=== PATIENT | male | born 1990 | race Hispanic/Latino ===

== ENCOUNTER → 2024-06-06 11:59 | Outpatient (CLI) | payer OTHER, SELFPAY ==
[2024-06-06 13:27] LABS: Add Manual Diff / Slide Review NO; Basophils Absolute Auto 100 /uL (0-100); Eosinophils Absolute Auto 200 /uL (0-450); Eosinophils Percent Auto 3.3 % (2-4); Hematocrit 48.2 % (41-53); Hemoglobin 16.5 g/dL (13.5-17.5); Lymphocytes Absolute Auto 1900 /uL (1100-4500); Mean Corpuscular HGB Conc 34.3 % (30-36); Mean Corpuscular Hemoglobin 30.9 PG (26-34); Monocytes Absolute Auto 400 /uL (0-900); Monocytes Percent Auto 6.7 % (3-14); Neutrophils Absolute Auto 3600 /uL (1500-7000); Platelet Count 240 X10^3/uL (150-400); Red Blood Cell Count 5.35 X10^6/uL (4.5-5.9); Red Cell Distribution Width 13.2 % (11.6-14.8); White Blood Cell Count 6.3 X10^3/uL (4.5-11.0)
[2024-06-06 14:10] LABS: Alanine Aminotransferase 40 IU/L (<50); Albumin 4.7 g/dL (3.5-5.0); Albumin Globulin Ratio 1.7 (1.0-2.8); Alkaline Phosphatase 49 U/L (38-126); Aspartate Aminotransferase 32 IU/L (17-59); BUN Creatinine Ratio 13.8 (6-22); Blood Urea Nitrogen 15 mg/dL (9-20); Calcium 9.4 mg/dL (8.4-10.2); Carbon Dioxide 25 mmol/L (22-32); Chloride 106 mmol/L (98-107); Cholesterol 217 mg/dL (140-199); Estimated Glomerular Filt Rate > 60 mL/min (>60); Globulin 2.8 g/dL (1.7-4.1); Glucose 99 mg/dL (70-100); HDL Cholesterol 45 mg/dL (40-60); HEMOLYSIS < 15 (0-50); LDL Cholesterol Calculated 142 mg/dL (<100); Potassium 4.2 mmol/L (3.4-5.1); Sodium 139 mmol/L (137-145); Total Protein 7.5 g/dL (6.3-8.2); Triglycerides 149 mg/dL (35-150)
[2024-06-06 14:12] LABS: Hemoglobin A1C% w Est Avg Glu 5.2 % (4.0-6.0)
== END ==
LOC: LAB 12:01
PROVIDERS: PCP Family Medicine; Referring Provider Family Medicine; Visit Provider Family Medicine
DX: E66.9 Obesity, unspecified (principal); Z83.3 Family history of diabetes mellitus; R53.83 Other fatigue; G47.9 Sleep disorder, unspecified
CPT/HCPCS: 36415; 80053; 80061; 83036; 84443; 85025

== ENCOUNTER → 2024-11-12 08:37 | Outpatient (CLI) | payer OTHER, SELFPAY ==
[2024-11-12 09:21] LABS: Influenza A - CEPHEID Flu A POSITIVE (NEGATIVE); Influenza B - CEPHEID Flu B NEGATIVE (NEGATIVE); Respiratory Syncytial Virus Negative (Negative)
[2024-11-12 09:34] LABS: COVID-19 CEPHEID 4-PLEX PCR Negative (Negative)
== END ==
PROVIDERS: PCP Family Medicine; Referring Provider Physician Assistant Medical; Visit Provider Physician Assistant Medical
DX: R05.1 Acute cough (principal)
CPT/HCPCS: 0241U

== ENCOUNTER → 2025-04-12 16:11 | Outpatient (CLI) | payer OTHER, SELFPAY ==
--- NOTE | 2025-04-12 16:14 | DI.MRI.S_ITS ---
PROCEDURE: MR ELBOW LT W CON INDICATIONS: DISPLACED FRACTURE TECHNIQUE: Noncontrast coronal proton density fast spin echo and T2 fast spin echo with fat saturation, axial and sagittal T1 spin echo and T2 fast spin echo with fat saturation through the elbow. COMPARISON: [facility], CR, XR ELBOW 3+ VIEWS LEFT, 03/30/2025, 9:57. FINDINGS: Image quality: Excellent. Bone and cartilage: Findings related to presumed prior posterior elbow dislocation. Displaced fracture of the anterior radial head with surrounding osseous edema. Osseous defect is estimated at 1.9 x 0.7 x 0.7 cm. A similarly sized displaced and mildly edematous osteochondral fragment is seen anterior superior to the capitellum. Mildly displaced fracture of the coronoid process of the ulna with surrounding edema. Osseous edema is seen at the posterior aspect of the capitellum and the posterior aspect of the trochlea and medial epicondyle, compatible with osseous contusions. Moderate elbow effusion. No additional intra-articular loose bodies are seen. Lateral structures: Suspected high-grade partial versus complete tearing of the radial collateral ligament at the mid to distal portion and the lateral ulnar collateral ligament at the origin. The overlying common extensor tendon demonstrates mild tendinosis without definite tendon tearing. Mild edema within the proximal extensor musculature is compatible with low-grade strains. Medial structures: There is likely complete tearing of the ulnar collateral ligament at the proximal humeral attachment. Low-grade partial tearing of the common flexor tendon at the origin with superimposed muscle strains in the proximal musculature. The ulnar nerve appears thickened in the cubital tunnel with increased signal intensity. No extrinsic compression is seen. Anterior structures: Edema is seen within the distal brachialis muscle that may be reactive or related to low-grade strains. The focal fluid signal is seen along the medial aspect of the distal brachialis insertion that is suspicious for partial tearing. Distal biceps tendon remains intact. Trace bicipitoradial bursal fluid. The median and radial neurovascular bundles appear normal; no focal muscle atrophy to suggest nerve impingement. Posterior structures: The conjoint triceps tendon from the long and lateral heads appears intact. The medial head of the triceps tendon also appears normal, with direct muscle insertion onto the olecranon. Nonspecific soft tissue edema surrounding the elbow without significant focal olecranon bursal fluid. IMPRESSION: 1. Intra-articular fracture defect at the anterior radial head, with a displaced osteochondral fragment located anterior superior to the capitellum. 2. Small mildly displaced fracture at the coronoid process of the ulna. 3. Osseous contusions at the posterior capitellum and the posterior humeral trochlea and medial epicondyle. 4. Full-thickness tearing of the ulnar collateral ligament at the origin. Mild partial tearing of the adjacent common flexor tendon with edema and likely low-grade strains of the surrounding musculature. 5. At least partial tearing of the radial collateral ligament distally and the lateral ulnar collateral ligament proximally. Tendinosis of the common extensor tendon without definite tearing. Mild strains of the extensor musculature. 6. Suspected partial tearing of the medial portion of distal brachialis insertion onto the ulna with associated intramuscular edema and fluid. Distal biceps tendon is intact. 7. Moderate joint effusion. Approved by: Niranjan Carty M.D. on 04/13/2025 at 9:26
== END ==
LOC: MRI 16:13
PROVIDERS: PCP Family Medicine; Referring Provider Family Medicine; Visit Provider Orthopaedic Surgery
DX: S52.042A Displaced fracture of coronoid process of left ulna, initial encounter for closed fracture (principal); S52.122A Displaced fracture of head of left radius, initial encounter for closed fracture; S53.442A Ulnar collateral ligament sprain of left elbow, initial encounter; S53.432A Radial collateral ligament sprain of left elbow, initial encounter; M25.422 Effusion, left elbow; S50.02XA Contusion of left elbow, initial encounter; X58.XXXA Exposure to other specified factors, initial encounter
CPT/HCPCS: 73221